=== PATIENT | female | born 1985 | race Caucasian/White ===

== ENCOUNTER 2020-05-28 17:35 | Emergency (ER) | payer SELFPAY ==
[~2020-05-28] VITALS: Ht 175.2 cm; Wt 64.4 kg
[~2020-05-28 17:35] MED LIST: CEPH500C PO; FLEXERIL; IBP800T PO; NAPR-243 PO; ORPH100T PO; TRM50T PO
[2020-05-28 17:45] VITALS: BP 150/85
--- NOTE | 2020-05-28 17:52 | ED GU-Female ---
General Stated Complaint: ABD PAIN,URINATING BLOOD History of Present Illness Date Seen by Provider: May 28, 2020 Time Seen by Provider: 17:51 Initial Comments 34 yo female presents with suprapubic pain x 3 days, dysuria, urinary frequency. Reports that it hurts the worst right towards the end of her urination. She denies any sexual activity towards an STD. She denies any fevers or chills. She reports that she notices a little blood in her urine. No nausea vomiting. Allergies and Home Medications Allergies Coded Allergies: NKANo Known Allergies (Unverified Allergy, Mild, 10/01/08) Hydrocodone (Verified Allergy, 04/01/11) Home Medications Ibuprofen 800 Mg Tab, 800 MG PO QID Prescribed by: NACHO MOSS on 01/12/101850 Naproxen 500 Mg Tablet, 1 EACH PO TID PRN FOR PAIN Prescribed by: FIDENCIO NAYAK on 04/01/111951 Nitrofurantoin Macrocrystal 100 Mg Capsule, 100 MG PO BID Prescribed by: LIZ BROWN on 05/28/201819 Orphenadrine Citrate 100 Mg Tablet.sa, 100 MG PO BID FOR MUSCLE SPASMS Prescribed by: FIDENCIO NAYAK on 04/01/111951 Tramadol Hcl 50 Mg Tab, 50 MG PO Q4-6HOURS PRN FOR PAIN Prescribed by: FIDENCIO NAYAK on 04/01/111951 [Flexeril] , TID, (Reported) Patient Home Medication List Home Medication List Reviewed: Yes Review of Systems Review of Systems Constitutional: No chills, No fever Respiratory: no symptoms reported Cardiovascular: no symptoms reported Gastrointestinal: see HPI Genitourinary: see HPI Musculoskeletal: no symptoms reported Skin: no symptoms reported Psychiatric/Neurological: No Symptoms Reported Endocrine: No Symptoms Reported Hematologic/Lymphatic: No Symptoms Reported Past Iasnexc-Wdxbun-Hcrunw Hx Past Med/Social Hx: Reviewed Nursing Past Med/Soc Hx Physical Exam Vital Signs Vital Signs - First Documented 05/28/20 17:45 Temp 37.2 Pulse 100 Resp 20 B/P (MAP) 150/85 (106) Pulse Ox 100 O2 Delivery Room Air Capillary Refill : Height, Weight, BMI Height: '" Weight: lbs. oz. kg; BMI Method:Stated General Appearance: mild distress Cardiovascular: normal peripheral pulses, regular rate, rhythm Respiratory: lungs clear, normal breath sounds Gastrointestinal: soft, tenderness (Suprapubic, bilateral lower abdomen) Back: no CVA tenderness, no vertebral tenderness Extremities: non-tender, normal inspection Neurologic/Psychiatric: alert, normal mood/affect, oriented x 3 Skin: normal color, warm/dry Progress/Results/Core Measures Suspected Sepsis SIRS Temperature: Pulse: Respiratory Rate: Blood Pressure / Mean: Results/Orders Lab Results Laboratory Tests Test 05/28/20 17:51 Range/Units Urine Color YELLOW Urine Clarity CLEAR Urine pH 7.0 5-9 Urine Specific Spencer 1.010 L 1.016-1.022 Urine Protein NEGATIVE NEGATIVE Urine Glucose (UA) NEGATIVE NEGATIVE Urine Ketones NEGATIVE NEGATIVE Urine Nitrite NEGATIVE NEGATIVE Urine Bilirubin NEGATIVE NEGATIVE Urine Urobilinogen 1.0 < = 1.0 MG/DL Urine Leukocyte Esterase 1+ H NEGATIVE Urine RBC (Auto) TRACE H NEGATIVE Urine RBC 0-2 /HPF Urine WBC 10-25 H /HPF Urine Squamous Epithelial Cells 2-5 /HPF Urine Crystals NONE /LPF Urine Bacteria TRACE /HPF Urine Casts NONE /LPF Urine Mucus NEGATIVE /LPF Urine Culture Indicated YES My Orders Orders - BROWN,LIZ L DO Abdomen (Kub) 1 View (05/28/20 17:53) Ua Culture If Indicated (05/28/20 17:53) Urine Bedside (05/28/20 17:53) Phenazopyridine Tablet (Pyridium Tablet) (05/28/20 18:00) Urine Culture (05/28/20 17:51) Medications Given in ED Vital Signs/I&O Capillary Refill : Progress Note : Progress Note Patient with acute cystitis. X-ray shows moderate to large amount of stool. Discussed with her the results of the study. She admits to having some issues with constipation recently. This is likely the cause of her discomfort in her abdomen along with the suprapubic pain from a UTI. Patient be treated with antibiotic. Recommend she use MiraLAX 2-3 times a day until soft daily stool. Patient stable and discharged home. Diagnostic Imaging Diagonstic Imaging: Xray Plain Films/CT/US/NM/MRI: abdomen Comments [facility] [place], [place] NAME: [facility]LETTE I [facility] REC#: [id number] PT STATUS: REG ER : 1985 PHYSICIAN: LIZ BROWN DO ADMIT DATE: 05/28/20/ER FS Draft Date of Exam:05/28/20 ABDOMEN (KUB) 1 VIEW INDICATION: Left lower quadrant pain Supine and upright abdominal images are obtained. Lung bases are clear. Gallbladder surgically absent. Bowel gas pattern is normal. There are no pathologic masses or calcifications. IMPRESSION: No acute abnormalities in the abdomen Dictated on workstation # [id number] Reviewed: Reviewed by Me, Reviewed/Discussed Departure Impression Primary Impression: Acute cystitis Qualified Codes: N30.01 - Acute cystitis with hematuria Additional Impression: Constipation Qualified Codes: K59.00 - Constipation, unspecified Disposition: HOME, SELF-CARE Condition: Stable Departure-Patient Inst. Referrals: NO,LOCAL PHYSICIAN (PCP/Family) Primary Care Physician Patient Instructions: Constipation, Adult ED, Acute Cystitis (DC) Add. Discharge Instructions: Drink plenty of fluid MiraLAX 2-3 capfuls daily until soft daily Azo or similar oikj-kfx-lyyljky bladder spasm treatment for acute cystitis Scripts Nitrofurantoin Macrocrystal (Nitrofurantoin) 100 Mg Capsule 100 MG PO BID, #10 CAP 0 Refills Prov: LIZ BROWN DO 05/28/20 LIZ BROWN DO May 28, 2020 17:52
[2020-05-28] MEDS ORDERED: PHENAZOPYRIDINE 100 MG (PYRIDIUM) TABLET PO ONE (18:00)
[2020-05-28 18:06] LABS: BILIRUBIN,URINE NEGATIVE (NEGATIVE); CLARITY,URINE CLEAR; COLOR,URINE YELLOW; GLUCOSE, URINE (UA) NEGATIVE (NEGATIVE); KETONES,URINE NEGATIVE (NEGATIVE); LEUKOCYTE ESTERASE ,URINE 1+ (NEGATIVE); NITRITE,URINE NEGATIVE (NEGATIVE); PROTEIN,URINE NEGATIVE (NEGATIVE)
[2020-05-28 18:07] LABS: BACTERIA,URINE TRACE /HPF; RBC,URINE 0-2 /HPF
--- NOTE | 2020-05-28 18:11 | Diagnostic Imaging Report ---
INDICATION: Left lower quadrant pain Supine and upright abdominal images are obtained. Lung bases are clear. Gallbladder surgically absent. Bowel gas pattern is normal. There are no pathologic masses or calcifications. IMPRESSION: No acute abnormalities in the abdomen Dictated by: Dictated on workstation # [id number]
[2020-05-28] MEDS ORDERED: NITR100C PO (18:20)
== END 2020-05-28 18:25 | disposition home or self-care (01) ==
LOC: EDUNIT# 17:35 → ER FS 17:36
DX: N30.00 Acute cystitis without hematuria (principal); K59.00 Constipation, unspecified; I10 Essential (primary) hypertension; Z88.5 Allergy status to narcotic agent
CPT/HCPCS: 74018; 81000; 84703; 87088

== ENCOUNTER 2021-12-25 21:46 | Emergency (ER) | payer MEDICAID, OTHER ==
[~2021-12-25 21:46] MED LIST changes: +NITR100C PO
[2021-12-25] MEDS ORDERED: OLANZapine 5 MG ODT (ZyPREXA ZYDIS) PO PRN (22:00)
--- NOTE | 2021-12-25 22:02 | ED Psychosocial ---
General Stated Complaint: SUCIDAL IDEATION Source: patient, other (ex ) Exam Limitations: no limitations (WILSON FAIR MD) History of Present Illness Date Seen by Provider: Dec 25, 2021 Time Seen by Provider: 21:48 Initial Comments 36-year-old female with methamphetamine use disorder coming in with her ex- wanting detox from meth as well as she is stating she is suicidal. She says she feels intermittently suicidal and has for over a month. She typically uses IV meth and she states she used it tonight. Uses marijuana intermittently. Does not drink any alcohol. A long time ago she states she is cut herself, but denies ever being admitted to any type of psychiatric facility. She denies any new stressors in her life or triggers. She denies any formal diagnoses, and takes no medicines daily. She is otherwise denying any other acute complaints at this time including no pain anywhere. (WILSON FAIR MD) Allergies and Home Medications Allergies Coded Allergies: NKANo Known Allergies (Unverified Allergy, Mild, 10/01/08) Hydrocodone (Verified Allergy, 04/01/11) Patient Home Medication List Home Medication List Reviewed: Yes (WILSON FAIR MD) Ibuprofen (Motrin) 800 Mg Tab, 800 MG PO QID Prescribed by: NACHO MOSS on 01/12/101850 Naproxen (Naprosyn) 500 Mg Tablet, 1 EACH PO TID PRN Prescribed by: FIDENCIO NAYAK on 04/01/111951 Nitrofurantoin Macrocrystal (Nitrofurantoin) 100 Mg Capsule, 100 MG PO BID Prescribed by: LIZ BROWN on 05/28/201819 Orphenadrine Citrate (Norflex) 100 Mg Tablet.sa, 100 MG PO BID Prescribed by: FIDENCIO NAYAK on 04/01/111951 Tramadol Hcl (Ultram) 50 Mg Tab, 50 MG PO Q4-6HOURS PRN Prescribed by: FIDENCIO NAYAK on 04/01/111951 [Flexeril] , TID, (Reported) Entered as Reported by: WILBUR PARADA on 04/01/11 1731 Review of Systems Constitutional: No fever EENTM: no symptoms reported Respiratory: no symptoms reported Cardiovascular: no symptoms reported Gastrointestinal: no symptoms reported Genitourinary: no symptoms reported Musculoskeletal: no symptoms reported Skin: no symptoms reported Psychiatric/Neurological: See HPI (WILSON FAIR MD) All Other Systems Reviewed Negative Unless Noted: Yes (WILSON FAIR MD) Past Yzgjsvk-Kwumpf-Dziowj Hx Patient Social History Substance use?: Yes Substance type: Methamphetamine, Marijuana Alcohol Use?: No (WILSON FAIR MD) Seasonal Allergies Seasonal Allergies: No (WILSON FAIR MD) Past Medical History Surgeries: Yes (Right ovarian cyst, ablation uterus) Appendectomy, Section, Gallbladder Respiratory: No Cardiac: No Neurological: No Female Reproductive Disorders: Menstrual Problems, Ovarian Cyst Genitourinary: No Gastrointestinal: No Musculoskeletal: No Endocrine: No HEENT: No Cancer: No Psychosocial: Yes Anxiety Integumentary: No Blood Disorders: No (WILSON FAIR MD) Physical Exam Vital Signs - First Documented 12/25/21 21:48 Temp 36.2 Pulse 100 Resp 20 B/P (MAP) 135/90 (105) Pulse Ox 100 O2 Delivery Room Air (NILTON MONROY MD) Capillary Refill : (WILSON FAIR MD) Height, Weight, BMI Height: '" Weight: lbs. oz. kg; 20.00 BMI Method:Stated General Appearance: WD/WN, other (tearful) HEENT: PERRL/EOMI, normal ENT inspection, pharynx normal Neck: non-tender, full range of motion, supple, normal inspection Respiratory: chest non-tender, lungs clear, normal breath sounds, no respiratory distress, no accessory muscle use Cardiovascular: regular rate, rhythm, no edema, no murmur Gastrointestinal: normal bowel sounds, non tender, soft; No distended, No guarding, No rebound Extremities: normal range of motion, non-tender, normal inspection, no pedal edema, no calf tenderness, normal capillary refill Neurologic/Psychiatric: no motor/sensory deficits, alert, normal mood/affect, oriented x 3, other (normal gait) Behavior/Eye Contact: cooperative, good eye contact, normal speech Thoughts/Hallucinations: normal thought pattern, no apparent hallucination, other (states she is suicidal and "would take too much drugs to overdose") Skin: normal color, warm/dry Lymphatic: no adenopathy (WILSON FAIR MD) Progress/Results/Core Measures Results/Orders Lab Results Laboratory Tests Test 12/25/21 21:50 12/25/21 21:59 12/25/21 22:10 12/25/21 22:13 Range/Units Urine Color YELLOW Urine Clarity CLEAR Urine pH 7.0 5-9 Urine Specific [place] 1.020 1.016-1.022 Urine Protein NEGATIVE NEGATIVE Urine Glucose (UA) NEGATIVE NEGATIVE Urine Ketones TRACE H NEGATIVE Urine Nitrite POSITIVE H NEGATIVE Urine Bilirubin NEGATIVE NEGATIVE Urine Urobilinogen 2.0 < = 1.0 MG/DL Urine Leukocyte Esterase 1+ H NEGATIVE Urine RBC (Auto) NEGATIVE NEGATIVE Urine RBC NONE /HPF Urine WBC 5-10 H /HPF Urine Squamous Epithelial Cells 10-25 H /HPF Urine Crystals NONE /LPF Urine Bacteria LARGE H /HPF Urine Casts NONE /LPF Urine Mucus NEGATIVE /LPF Urine Culture Indicated YES Urine Test NEGATIVE NEGATIVE Urine Opiates Screen NEGATIVE NEGATIVE Urine Oxycodone Screen NEGATIVE NEGATIVE Urine Methadone Screen NEGATIVE NEGATIVE Urine Propoxyphene Screen NEGATIVE NEGATIVE Urine Barbiturates Screen NEGATIVE NEGATIVE Ur Tricyclic Antidepressants Screen NEGATIVE NEGATIVE Urine Phencyclidine Screen NEGATIVE NEGATIVE Urine Amphetamines Screen POSITIVE H NEGATIVE Urine Methamphetamines Screen POSITIVE H NEGATIVE Urine Benzodiazepines Screen NEGATIVE NEGATIVE Urine Cocaine Screen NEGATIVE NEGATIVE Urine Cannabinoids Screen POSITIVE H NEGATIVE White Blood Count 5.5 4.3-11.0 10^3/uL Red Blood Count 4.29 3.80-5.11 10^6/uL Hemoglobin 12.9 11.5-16.0 g/dL Hematocrit 39 35-52 % Mean Corpuscular Volume 91 80-99 fL Mean Corpuscular Hemoglobin 30 25-34 pg Mean Corpuscular Hemoglobin Concent 33 32-36 g/dL Red Cell Distribution Width 12.4 10.0-14.5 % Platelet Count 269 130-400 10^3/uL Mean Platelet Volume 8.5 L 9.0-12.2 fL Immature Granulocyte % (Auto) 0 % Neutrophils (%) (Auto) 60 42-75 % Lymphocytes (%) (Auto) 31 12-44 % Monocytes (%) (Auto) 7 0-12 % Eosinophils (%) (Auto) 2 0-10 % Basophils (%) (Auto) 0 0-10 % Neutrophils # (Auto) 3.3 1.8-7.8 10^3/uL Lymphocytes # (Auto) 1.7 1.0-4.0 10^3/uL Monocytes # (Auto) 0.4 0.0-1.0 10^3/uL Eosinophils # (Auto) 0.1 0.0-0.3 10^3/uL Basophils # (Auto) 0.0 0.0-0.1 10^3/uL Immature Granulocyte # (Auto) 0.0 0.0-0.1 10^3/uL Sodium Level 138 135-145 MMOL/L Potassium Level 3.5 L 3.6-5.0 MMOL/L Chloride Level 100 98-107 MMOL/L Carbon Dioxide Level 26 21-32 MMOL/L Anion Gap 12 5-14 MMOL/L Blood Urea Nitrogen 10 7-18 MG/DL Creatinine 0.80 0.60-1.30 MG/DL Estimat Glomerular Filtration Rate 98 BUN/Creatinine Ratio 13 Glucose Level 60 *L 70-105 MG/DL Calcium Level 9.2 8.5-10.1 MG/DL Corrected Calcium 9.0 8.5-10.1 MG/DL Total Bilirubin 0.3 0.1-1.0 MG/DL Aspartate Amino Transf (AST/SGOT) 14 5-34 U/L Alanine Aminotransferase (ALT/SGPT) 10 0-55 U/L Alkaline Phosphatase 89 40-136 U/L Total Protein 7.5 6.4-8.2 GM/DL Albumin 4.3 3.2-4.5 GM/DL Salicylates Level < 0.3 L 5.0-20.0 MG/DL Acetaminophen Level < 10 L 10-30 UG/ML Serum Alcohol < 10 <10 MG/DL SARS-CoV-2 RNA (RT-PCR) Not Detected Not Detecte (NILTON MONROY MD) Medications Given in ED (NILTON MONROY MD) Vital Signs/I&O 12/26/21 09:48 Temp 36.2 Pulse 100 Resp 20 B/P (MAP) 135/90 Pulse Ox 100 O2 Delivery Room Air 12/26/21 00:00 Intake Total 50 ml Balance 50 ml (NILTON MONROY MD) Progress Progress Note : Progress Note 36-year-old female with above history coming in due to suicidal ideation with plans to overdose on drugs. ABCs were intact and vitals were stable on presentation. Despite the patient stating she recently used meth, she is cooperative, makes good eye contact, is clearly understandable and does not seem intoxicated. She has no physical complaints at this time. UA with possible infection which she was treated with IV ceftriaxone. Glucose was 60 as well. She was asymptomatic, and tolerating PO to help keep it up. The patient is cleared for psychiatric evaluation at this point in time. Upon calling her mental health screeners, they stated they are unable to by policy screen the patient until she has waited 12 hours from the last time she used methamphetamines. That would be roughly 8 AM this morning. Given she was still feeling suicidal, we will board the patient in the ER until she is able to be screened, or if she becomes clinically sober and is not suicidal when of sound mind it is possible she could go home. She will be signed out to the oncoming physician. (WILSON FAIR MD) Progress Note : Time: 09:38 Progress Note I assumed care of the patient from Dr. Fair at shift change. [facility]. After here telehealth screening they were able to agree on a safety plan for the patient. (NILTON MONROY MD) Initial ECG Impression Date: Dec 25, 2021 Initial ECG Impression Time: 22:21 Initial ECG Rate: 91 Initial ECG Rhythm: Normal Sinus Comment Narrow QRS, normal axis, no significant ST changes or T wave abnormalities (WILSON FAIR MD) Departure Impression Primary Impression: Suicidal ideation Additional Impression: Methamphetamine use Disposition: 01 HOME, SELF-CARE Condition: Stable Departure-Patient Inst. Decision time for Depature: 09:44 (NILTON MONROY MD) Referrals: NO,LOCAL PHYSICIAN (PCP) Primary Care Physician [facility] Patient Instructions: OUTPT MENTAL HEALTH SERVICES, Drug Abuse Treatment Add. Discharge Instructions: Do not use Methamphetamines or any Drugs. Do not drink alcohol. Follow Safety Plan as agreed upon with mental health provider through [facility]. WILSON FAIR MD Dec 25, 2021 22:02 NILTON MONROY MD Dec 26, 2021 09:45
[2021-12-25 22:17] LABS: BASOPHILS % (AUTO) 0 % (0-10); EOSINOPHILS # (AUTO) 0.1 10^3/uL (0.0-0.3); EOSINOPHILS % (AUTO) 2 % (0-10); HEMATOCRIT 39 % (35-52); HEMOGLOBIN 12.9 g/dL (11.5-16.0); LYMPHOCYTES # (AUTO) 1.7 10^3/uL (1.0-4.0); LYMPHOCYTES % (AUTO) 31 % (12-44); MEAN CORPUSCULAR HEMOGLOBIN 30 pg (25-34); MEAN CORPUSCULAR HGB CONC 33 g/dL (32-36); MEAN CORPUSCULAR VOLUME 91 fL (80-99); MEAN PLATELET VOLUME 8.5 fL (9.0-12.2); MONOCYTES # (AUTO) 0.4 10^3/uL (0.0-1.0); MONOCYTES % (AUTO) 7 % (0-12); NEUTROPHILS # (AUTO) 3.3 10^3/uL (1.8-7.8); NEUTROPHILS % (AUTO) 60 % (42-75); PLATELET COUNT 269 10^3/uL (130-400); WHITE BLOOD COUNT 5.5 10^3/uL (4.3-11.0)
[2021-12-25 22:18] LABS: BILIRUBIN,URINE NEGATIVE (NEGATIVE); CLARITY,URINE CLEAR; COLOR,URINE YELLOW; GLUCOSE, URINE (UA) NEGATIVE (NEGATIVE); KETONES,URINE TRACE (NEGATIVE); LEUKOCYTE ESTERASE ,URINE 1+ (NEGATIVE); NITRITE,URINE POSITIVE (NEGATIVE); PROTEIN,URINE NEGATIVE (NEGATIVE)
[2021-12-25 22:25] LABS: BACTERIA,URINE LARGE /HPF
[2021-12-25 22:26] LABS: HCG,QUALITATIVE URINE NEGATIVE (NEGATIVE)
[2021-12-25 22:29] LABS: AMPHETAMINE SCREEN, URINE POSITIVE (NEGATIVE); CANNABINOID SCREEN, URINE POSITIVE (NEGATIVE)
[2021-12-25 22:30] LABS: BARBITURATE SCREEN URINE NEGATIVE (NEGATIVE); BENZODIAZEPINES SCREEN URINE NEGATIVE (NEGATIVE); COCAINE SCREEN URINE NEGATIVE (NEGATIVE); METHADONE STAT NEGATIVE (NEGATIVE); OPIATE SCREEN URINE NEGATIVE (NEGATIVE); OXYCODONE STAT NEGATIVE (NEGATIVE); PROPOXYPHENE STAT NEGATIVE (NEGATIVE); TRICYCLIC ANTIDEPRESSANTS SCRE NEGATIVE (NEGATIVE)
[2021-12-25] MEDS ORDERED: cefTRIAXone 1 GM PRE-MIX 50 ML IV STA (22:32)
[2021-12-25 22:42] LABS: ACETAMINOPHEN < 10 UG/ML (10-30); ALANINE AMINOTRANSFERASE 10 U/L (0-55); ALBUMIN 4.3 GM/DL (3.2-4.5); ALKALINE PHOSPHATASE 89 U/L (40-136); BILIRUBIN,TOTAL 0.3 MG/DL (0.1-1.0); BUN/CREATININE RATIO 13; CALCIUM 9.2 MG/DL (8.5-10.1); CARBON DIOXIDE 26 MMOL/L (21-32); CHLORIDE 100 MMOL/L (98-107); GFR ESTIMATED 98; POTASSIUM 3.5 MMOL/L (3.6-5.0); SALICYLATE < 0.3 MG/DL (5.0-20.0); SODIUM 138 MMOL/L (135-145); TOTAL PROTEIN 7.5 GM/DL (6.4-8.2)
[2021-12-25 22:43] LABS: GLUCOSE 60 MG/DL (70-105)
[2021-12-26 09:48] VITALS: BP 135/90
== END 2021-12-26 10:30 | disposition home or self-care (01) ==
LOC: EDUNIT# 21:46 → ER FS 21:47
DX: F15.90 Other stimulant use, unspecified, uncomplicated (principal); R45.851 Suicidal ideations; Z20.822 Contact with and (suspected) exposure to COVID-19; Z28.310 Unvaccinated for COVID-19
CPT/HCPCS: 36415; 80053; 80306; 80320; 80329; 81000; 84703; 85025; 87077; 87088; 87186; 87636; 93005

== ENCOUNTER 2022-08-09 11:07 | Emergency (ER) | payer MEDICAID, OTHER ==
[~2022-08-09] VITALS: Ht 175 cm; Wt 62.0 kg
[2022-08-09 11:15] VITALS: BP 97/63
[2022-08-09] MEDS ORDERED: cefTRIAXone IV/IM 1,000 MG in NS (IVPB) 50 ML IV STA (11:16)
[2022-08-09] MEDS ORDERED: cefTRIAXone 1,000 MG VIAL (for IV or IM) IM STA (11:16)
[2022-08-09] MEDS ORDERED: KETOROLAC 30 MG/ML VIAL IM STA (11:16)
[2022-08-09] MEDS ORDERED: LIDOCAINE 1% INJ 20 ML VIAL INJ ONE (11:30)
[2022-08-09] MEDS ORDERED: IBUP-1780 PO (11:33)
[2022-08-09] MEDS ORDERED: AMOX1TAB12 PO (11:33)
[2022-08-09] MEDS ORDERED: TRM50T PO (11:33)
[2022-08-09] MEDS ORDERED: CHLO473M4 MM (11:35)
--- NOTE | 2022-08-09 11:35 | ED EENT ---
History of Present Illness General Chief Complaint: Dental Problems/Pain Stated Complaint: FACIAL SWELLING Nursing Triage Note: Patient has ambulated to ER 2 with cc of dental pain. She reports dental pain started in her left lower wisdom tooth 2 weeks ago and it has gotten worse. She has taken ambasol and ibuprofen for the pain but it is getting worse. She has not seen anyone and came to ER for evaluation. She reports that [place] [facility] [place] Source: patient History of Present Illness Date Seen by Provider: August 09, 2022 Time Seen by Provider: 11:09 Initial Comments 36-year-old female presenting with complaints of dental pain and swelling for over 2 weeks. She states that she has several bad teeth and about 2 weeks ago noticed her left lower wisdom tooth started hurting. Since then her right side is hurting as well on the mandible. She has been doing ibuprofen and Anbesol for the pain but feels that it is getting worse. She states that she does not have a primary care doctor. She reports being on the waiting list for [facility] dental clinic out of [place]. She felt that she had fever up to 102 F yesterday. Timing/Duration: abrupt, other (for over 2 weeks) Severity: severe Location: facial, dental Prearrival Treatment: over the counter meds Associated Symptoms: No change in hearing, No cough, No drooling, No ear drainage; facial pain/swelling, fever; No malaise, No nasal congestion/drainage, No poor fluid intake, No poor solids intake, No sinus infection, No sore throat; tooth pain Allergies and Home Medications Allergies Coded Allergies: NKANo Known Allergies (Unverified Allergy, Mild, 10/01/08) hydrocodone (Verified Allergy, Unknown, 08/09/22) Patient Home Medication List Home Medication List Reviewed: Yes Amoxicillin/Potassium Clav (Amox Tr-K Clv 875-125 mg Tab) 875 Mg-125 Mg Tablet, 1 EACH PO BID Prescribed by: NILTON MONROY on 08/09/22 1133 Chlorhexidine Gluconate (Peridex) 0.12 % Mouthwash, 15 ML MM BID Prescribed by: NILTON MONROY on 08/09/22 1135 Ibuprofen (Motrin) 800 Mg Tab, 800 MG PO QID Prescribed by: NACHO MOSS on 01/12/10 1851 Ibuprofen (Ibuprofen) 800 Mg Tablet, 800 MG PO Q8H PRN for PAIN Prescribed by: NILTON MONROY on 08/09/22 113 Naproxen (Naprosyn) 500 Mg Tablet, 1 EACH PO TID PRN Prescribed by: FIDENCIO NAYAK on 04/01/111951 Nitrofurantoin Macrocrystal (Nitrofurantoin) 100 Mg Capsule, 100 MG PO BID Prescribed by: LIZ BROWN on 05/28/20 182 Orphenadrine Citrate (Norflex) 100 Mg Tablet.sa, 100 MG PO BID Prescribed by: FIDENCIO NAYAK on 04/01/111951 Tramadol HCl (Tramadol HCl) 50 Mg Tablet, 50 MG PO Q4H PRN for PAIN SEVERE Prescribed by: NILTON MONROY on 08/09/221132 Tramadol Hcl (Ultram) 50 Mg Tab, 50 MG PO Q4-6HOURS PRN Prescribed by: FIDENCIO NAYAK on 04/01/111951 [Flexeril] , TID, (Reported) Entered as Reported by: WILBUR PARADA on 04/01/11 1731 Review of Systems Review of Systems Constitutional: No chills; fever Eyes: No Symptoms Reported Ears: No Symptoms Reported Nose: no symptoms reported Mouth: see HPI Throat: no symptoms reported Respiratory: no symptoms reported Cardiovascular: no symptoms reported Gastrointestinal: no symptoms reported Musculoskeletal: no symptoms reported Skin: no symptoms reported Neurological: No Symptoms Reported Past Gsrozfr-Orrexz-Iadjnl Hx Patient Social History Tobacco Use?: Yes Tobacco type used: Cigarettes Use of E-Cig and/or Vaping dev: No Substance use?: No Alcohol Use?: No Seasonal Allergies Seasonal Allergies: No Past Medical History Surgeries: Yes (Right ovarian cyst, ablation uterus) Appendectomy, Section, Gallbladder Respiratory: No Cardiac: No Neurological: No Female Reproductive Disorders: Menstrual Problems, Ovarian Cyst Genitourinary: No Gastrointestinal: No Musculoskeletal: No Endocrine: No HEENT: No Cancer: No Psychosocial: Yes Anxiety Integumentary: No Blood Disorders: No Physical Exam Vital Signs Vital Signs - First Documented 08/09/22 11:15 Temp 36.7 Pulse 93 Resp 18 B/P (MAP) 97/63 (74) Pulse Ox 100 O2 Delivery Room Air Height, Weight, BMI Height: '" Weight: lbs. oz. kg; 20.00 BMI Method:Stated General Appearance: no apparent distress Eyes: bilateral eye normal inspection, bilateral eye PERRL, bilateral eye EOMI Mouth/Throat: pharynx normal, dental tenderness, other (Widespread dental decay and gum swelling with multiple broken/decayed teeth) Cardiovascular: normal peripheral pulses, regular rate, rhythm Respiratory: chest non-tender, lungs clear, normal breath sounds Neurologic/Psychiatric: alert, oriented x 3 Skin: normal color, warm/dry Progress/Results/Core Measures Results/Orders My Orders Orders - NILTON MONROY MD Ceftriaxone Iv/Im (Rocephin Iv/Im) (08/09/22 11:16) Lidocaine 1% Inj 20 Ml (Xylocaine 1% Inj (08/09/22 11:30) Ketorolac Injection (Toradol Injection) (08/09/22 11:16) Ceftriaxone Pre-Mix (Rocephin Pre-Mix) (08/09/22 12:18) Medications Given in ED Current Medications Medications Dose Ordered Sig/Edna Route Start Time Stop Time Status Last Admin Dose Admin Lidocaine HCl 2.1 ml ONCE ONCE INJ 08/09/22 11:30 08/09/22 11:31 DC 08/09/22 11:27 2.1 ML Vital Signs/I&O 08/09/22 11:15 Temp 36.7 Pulse 93 Resp 18 B/P (MAP) 97/63 (74) Pulse Ox 100 O2 Delivery Room Air Blood Pressure Mean: 74 Progress Progress Note : Progress Note With widespread dental decay and multiple broken teeth as well as gum swelling and tenderness will start patient on antibiotics. Since she has hydrocodone listed as an allergy in the computer we will avoid using that. She has previously had prescriptions for tramadol so we will refill that. On review of the patient prescription monitoring program there was no recent controlled substance prescriptions. Administer ceftriaxone 1 g IM to try and get more the antibiotics in her system faster. Also given Toradol 30 mg IM to try and help with pain and swelling. Prescribed Augmentin 875 1 p.o. twice daily for 10 days for dental abscess and infection, Peridex mouthwash 15 mL p.o. twice daily x2 weeks. Tramadol 50 mg p.o. every 4 hours as needed severe pain for 3 days. Encouraged to establish and follow-up with dental clinic and primary care soon as possible for more definitive treatment. Departure Impression Primary Impression: Dental caries Additional Impressions: Dental abscess Pain due to dental caries Disposition: 01 HOME, SELF-CARE Condition: Stable Departure-Patient Inst. Decision time for Depature: 11:31 Referrals: NO,LOCAL PHYSICIAN (PCP) Primary Care Physician [facility] Patient Instructions: Tooth Decay ED, Tooth Abscess ED, Dental Pain ED Add. Discharge Instructions: Take the full course of antibiotics to treat for infection. Use the prescription mouthwash to help with infection and dental decay. Establish and follow-up with primary care clinic as well as dentist for continued care and definitive treatment of the dental infection. All discharge instructions reviewed with patient and/or family. Voiced understanding. Scripts Chlorhexidine Gluconate (Peridex) 0.12 % Mouthwash 15 ML MM BID for dental infection for 15 Days, #473 ML 0 Refills Swish 15 mL in mouth for 30 seconds then spit out. Use twice a day Prov: NILTON MONROY MD 08/09/22 Ibuprofen (Ibuprofen) 800 Mg Tablet 800 MG PO Q8H PRN for PAIN for 10 Days, #30 TAB 0 Refills Prov: NILTON MONROY MD 08/09/22 Tramadol HCl (Tramadol HCl) 50 Mg Tablet 50 MG PO Q4H PRN for PAIN SEVERE for 3 Days, #18 TAB 0 Refills Prov: NILTON MONROY MD 08/09/22 Amoxicillin/Potassium Clav (Amox Tr-K Clv 875-125 mg Tab) 875 Mg-125 Mg Tablet 1 EACH PO BID for dental abscess for 10 Days, #20 TAB 0 Refills Prov: NILTON MONROY MD 08/09/22 NILTON MONROY MD August 09, 2022 11:35
[2022-08-09] MEDS ORDERED: cefTRIAXone PRE-MIX 50 ML IV STA (12:18)
== END 2022-08-09 11:40 | disposition home or self-care (01) ==
LOC: EDUNIT# 11:07 → ER FS 11:08
DX: K02.9 Dental caries, unspecified (principal); K04.7 Periapical abscess without sinus; K03.81 Cracked tooth; F17.210 Nicotine dependence, cigarettes, uncomplicated
CPT/HCPCS: 99284